=== PATIENT | male | born 1995 | race Caucasian/White ===

== ENCOUNTER 2018-02-13 10:00 | Emergency (ER) | payer OTHER ==
[~2018-02-13] VITALS: Ht 180.3 cm; Wt 83.9 kg
[2018-02-13] MEDS ORDERED: KEFLEX500 M1 PO (11:11)
--- NOTE | 2018-02-13 11:12 | ED HAND/WRIST INJURY COMPLAINT ---
History of Present Illness General Chief Complaint: General Adult Stated Complaint: SHOT FRAMING NAILGUN THROUGH WEB OF THUMB Source: patient Exam Limitations: no limitations Vital Signs & Intake/Output Vital Signs & Intake/Output Vital Signs Date Time Temp Pulse Resp B/P B/P Pulse O2 O2 Flow FiO2 Mean Ox Delivery Rate 02/13 1122 98.6 76 18 126/88 98 Room Air 02/13 1011 97.4 74 20 148/97 99 Room Air Allergies Coded Allergies: No Known Drug Allergies (Intermediate, NONE 02/13/18) Reconcile Medications Cephalexin (Keflex) 500 MG CAPSULE 1 CAP PO TID SOFT TISSUE FB Triage Note: HAS FOREIIGN BODY (FRAMING NAIL) EMBEDDED IN LEFT HAND (WEB AREA BETWEEN THUMB AND FOREFINER. ACCIDENTALLY SHOT SELF WITH NAIL GUN. + ROM. DENIES NUMBNESS OR TINGLING. Triage Nurses Notes Reviewed? yes Occurred: just prior to arrival Duration: day(s): Timing: recent history Injury Environment: home Severity: mild, moderate Pain/Injury Location: Left: Hand. No Modifying Factors: none HPI: 23-year-old male comes into the emergency room for further evaluation of left hand injury from nail gun.Patient currently has nail in his left thumb. Tetanus shot unknown. Mild throbbing pain. Continuous. Some mild tingling to his thumb otherwise feels good sensation. Denies any other system symptoms. (Breezy Hermosillo) Past History Travel History Traveled to [place] past 21 day No Medical History Any Pertinent Medical History? see below for history Neurological: NONE EENT: NONE Cardiovascular: NONE Respiratory: NONE Gastrointestinal: NONE Hepatic: NONE Renal: NONE Musculoskeletal: NONE Psychiatric: NONE Endocrine: NONE Tetanus Vaccine: 02/13/18 Surgical History Surgical History: non-contributory Psychosocial History What is your primary language Turkish Tobacco Use: Current Daily Use Daily Tobacco Use Amount/Type: => 5 Cigarettes daily ETOH Use: occasional use Family History Hx Contributory? No (Breezy Hermosillo) Review of Systems Review of Systems Constitutional: Reports: no symptoms. EENTM: Reports: no symptoms. Respiratory: Reports: no symptoms. Cardiovascular: Reports: no symptoms. GI: Reports: no symptoms. Genitourinary: Reports: no symptoms. Musculoskeletal: Reports: see HPI. Skin: Reports: see HPI. Neurological/Psychological: Reports: no symptoms. Hematologic/Endocrine: Reports: no symptoms. Immunologic/Allergic: Reports: no symptoms. All Other Systems: Reviewed and Negative (Breezy Hermosillo) Physical Exam Physical Exam General Appearance: well developed/nourished, mild distress Head: atraumatic Eyes: Bilateral: PERRL, EOMI. Ears, Nose, Throat: normal pharynx, normal ENT inspection, hearing grossly normal Neck: normal inspection, supple Cardiovascular/Respiratory: normal breath sounds, regular rate/rhythm Back: normal inspection Hand Left: nail in soft tissue left thumb, Full range of motion, sensation intact, radial pulse 2+, cap refill less than 2 seconds Hand Right: normal inspection Neurologic/Tendon: normal sensation, normal motor functions, normal tendon functions, responds to pain, no evidence tendon injury, no pulse deficit Skin: intact, normal color, warm/dry Lymphatic: no anterior cervical kwabena (Breezy Hermosillo) Progress Differential Diagnosis: dislocation, fracture, tendon laceration, soft tissue foreign body, Plan of Care: Orders Procedure Date/time Status XRY-HAND, 3 View LEFT 02/13 1229 Active Diagnostic Imaging: Viewed by Me: Radiology Read. Discussed w/RAD: Radiology Read. Radiology Impression: PATIENT: FADI BHARDWAJ PRESENT AGE: 23 PATIENT ACCOUNT NO: [id number] : 94 LOCATION: [facility] ORDERING PHYSICIAN: Breezy MAURICE SERVICE DATE: 02/13/18 EXAM TYPE: RAD - XRY-HAND, RIGHT EXAMINATION: XR HAND, LEFT CLINICAL INFORMATION: Foreign body right thumb. COMPARISON: None. TECHNIQUE: PA, lateral, and oblique views of the left hand were obtained. FINDINGS: There is a nail measuring approximately 7 cm in length with a shaft spur in the soft tissues of the left hand in the region of the first and second digits. The tip appears to extend beyond the thenar soft tissues. No fractures are demonstrated. There are no other radiodense foreign bodies. IMPRESSION: 1. X-ray of the left hand demonstrates a nail between the first and second digits. No fractures are demonstrated. There are no other radiopaque foreign bodies. DICTATED BY: Joss Montes De Oca MD DATE/TIME DICTATED:02/13 MENTAL HEALTH CONSULTANT:CHLOE DATE/TIME TRANSCRIBED:02/13/181155 CONFIDENTIAL, DO NOT COPY WITHOUT APPROPRIATE AUTHORIZATION. <Electronically signed in Other Vendor System> SIGNED BY: Joss Montes De Oca MD 02/13/18 1227 Comments: 02/13/2018 11:23:54 AM Patient clinically looks well. Patient is in no apparent distress. Nontoxic- appearing. Started on oral Keflex. Nail removed with no difficulty. Wound was then irrigated with peroxide and saline. Started on oral antibiotics. (Breezy Hermosillo) Departure Departure Disposition: HOME OR SELF CARE Condition: Stable Clinical Impression Primary Impression: Foreign body (FB) in soft tissue Secondary Impressions: Injury of left thumb by nail gun Referrals: Patient Has No Primary Care Dr (PCP/Family) Additional Instructions: Take Keflex as prescribed. Watch for signs of infection such as redness on discharge fever chills. Return if any other concerns. Please go over all results of today's visit with your primary care doctor. Contact your primary care doctor to let them know you were here in the emergency room. There may be nonspecific findings which may not be related to your visit today here in the emergency room but may require further evaluation and chronic monitoring by your primary care doctor. If you had a laceration today the chance of foreign body always remains. You should follow-up with your primary care doctor for recheck in 3-5 days for a wound check. If you had an x-ray done there is a chance that a fracture could have been missed on initial read and you should follow-up with your primary care doctor for repeat x-rays if symptoms persist. If your blood pressure was elevated here in the emergency room please have rechecked by [facility] primary care doctor within the next 48. If you were prescribed a narcotic here in the emergency room or any type of controlled substances you're not allowed to drive while taking this medication or operate any type of heavy machinery. Narcotics can make you feel lightheaded dizziness nausea and can cause constipation. You may need to picked edge sewing machine operator a stool softener. Thank you for choosing [facility] emergency room. Please return to the emergency room immediately if you have any other concerns worsening of symptoms. Departure Forms: Customer Survey General Discharge Information Prescriptions: Current Visit Scripts Cephalexin (Keflex) 1 CAP PO TID #21 CAP (Breezy Hermosillo) PA/PUTTYING AND CALKING SUPERVISOR Co-Sign Statement Statement: ED Attending supervision documentation- [x] I saw and evaluated the patient. I have also reviewed all the pertinent lab results and diagnostic results. I agree with the findings and the plan of care as documented in the PA's/PUTTYING AND CALKING SUPERVISOR's documentation. [] I have reviewed the ED Record and agree with the PA's/PUTTYING AND CALKING SUPERVISOR's documentation. [] Additions or exceptions (if any) to the PAs/PUTTYING AND CALKING SUPERVISOR's note and plan are summarized below: [] (Dao Mcintyre DO) Procedures Laceration/Wound Repair Progress: 2% lidocaine, Betadine prep, injected around the entry and exit of the nail, nail removed with no difficulty (Breezy Hermosillo)
[2018-02-13 11:22] VITALS: BP 126/88
--- NOTE | 2018-02-13 12:27 | RADIOLOGY REPORT ---
EXAMINATION: XR HAND, LEFT CLINICAL INFORMATION: Foreign body right thumb. COMPARISON: None. TECHNIQUE: PA, lateral, and oblique views of the left hand were obtained. FINDINGS: There is a nail measuring approximately 7 cm in length with a shaft spur in the soft tissues of the left hand in the region of the first and second digits. The tip appears to extend beyond the thenar soft tissues. No fractures are demonstrated. There are no other radiodense foreign bodies. IMPRESSION: 1. X-ray of the left hand demonstrates a nail between the first and second digits. No fractures are demonstrated. There are no other radiopaque foreign bodies.
--- NOTE | 2018-02-13 14:13 | RADIOLOGY REPORT ---
EXAMINATION: XR HAND, LEFT CLINICAL INFORMATION: Foreign body. Pain COMPARISON: None TECHNIQUE: PA, lateral, and oblique views of the left hand. FINDINGS: There is a slightly bent 7.1 cm nail projecting in the soft tissues between the first and second metacarpal. The head of the nail is dorsally positioned. The sharp bend of the nail projects beyond the soft tissues of the first digit. There is a smaller metallic foreign body adjacent to the nail which may be a staple. There is no convincing fracture. IMPRESSION: There is a nail projecting in the soft tissues between the first and second metacarpals and there is adjacent additional metallic density which may be a staple. No fracture demonstrated
== END 2018-02-13 11:22 ==
LOC: ERH 10:00
DX: S61.042A Puncture wound with foreign body of left thumb without damage to nail, initial encounter (principal); W29.4XXA Contact with nail gun, initial encounter; Y92.009 Unspecified place in unspecified non-institutional (private) residence as the place of occurrence of the external cause; Y93.9 Activity, unspecified
CPT/HCPCS: 73130-LT; 73130-RT; 90471; 90714; J2001